=== PATIENT | male | born 1980 | race Caucasian/White ===

== ENCOUNTER 2017-10-30 16:17 | Emergency (ER) | payer OTHER ==
[~2017-10-30] VITALS: Ht 167.6 cm; Wt 99.8 kg
[~2017-10-30 16:17] MED LIST: NAPROSYN500 MG PO; ZYRTEC10 M5 PO
[2017-10-30] MEDS ORDERED: ZOFRAN ODT4 MG DISSOLVE (16:27)
[2017-10-30 17:01] LABS: BASOPHILS 0.8 % (0.0-2.0); EOSINOPHILS 3.5 % (0.0-3.0); HEMATOCRIT 45.9 % (42.0-52.0); HEMOGLOBIN 16.3 gm/dL (14.0-18.0); LYMPHOCYTES 28.5 % (24.0-44.0); MCH 31.2 pg (26.0-34.0); MCHC 35.4 g/dL (28.0-37.0); MONOCYTES 7.1 % (1.0-8.0); PLATELET COUNT 276 thou/uL (150-400); POLYS 60.1 % (36.0-66.0); RBC 5.21 mil/uL (4.50-6.00); RDW 13.2 % (10.5-14.5); WBC 6.6 thou/uL (4.0-11.0)
[2017-10-30 17:09] LABS: CREATININE 1.2 mg/dL (0.7-1.3); POTASSIUM 3.7 mmol/L (3.5-5.1)
[2017-10-30 17:14] LABS: ALBUMIN 3.7 g/dL (3.4-5.0); DIRECT BILIRUBIN 0.1 mg/dL (<0.1-0.3); TOTAL BILIRUBIN 0.4 mg/dL (<0.1-1.0); TOTAL PROTEIN 6.8 g/dL (6.4-8.2)
[2017-10-30] MEDS ORDERED: COLACE100 MG PO (17:18)
[2017-10-30 17:36] VITALS: BP 134/90
[2017-11-01] MEDS ORDERED: VENTOLIN HFA 1818 GM INH (08:14)
== END 2017-10-30 17:46 | disposition home or self-care (01) ==
LOC: ER 16:17
PROVIDERS: Emergency Medicine
DX: K62.5 Hemorrhage of anus and rectum (principal); R10.31 Right lower quadrant pain; J45.909 Unspecified asthma, uncomplicated; I10 Essential (primary) hypertension

== ENCOUNTER → 2017-11-02 | Outpatient (CLI) | payer OTHER ==
[~2017-11-02] VITALS: Ht 167.6 cm; Wt 99.8 kg
[~2017-11-02] MED LIST changes: +COLACE100 MG PO; +VENTOLIN HFA 1818 GM INH; +ZOFRAN ODT4 MG DISSOLVE
--- NOTE | ~2017-11-02 | P ---
[facility] [place] [address] PROCEDURE REPORT Name: FROILANYINA DEAN Room #: REG KARLA Carter#: [id number] Admission: 11/02/17 Attend Phys: Smith Naidu Discharge: Date of : 82 Report #: [id number] THIS REPORT FOR: //name// CC: Smith Escamilla MD DATE OF SERVICE: 11/02/2017 PROCEDURE PERFORMED: Colonoscopy with biopsies. HISTORY OF PRESENT ILLNESS: The patient is a 36-year-old male with recent episodes of bright red blood per rectum. No abdominal pain, no constipation or diarrhea associated with this. He had a CT scan of the abdomen and pelvis that was negative apparently. No family history of colon cancer. No previous history of colonoscopy. PROCEDURE: The risks and benefits of the procedure were explained to the patient, those risks including, but not limited to bleeding, perforation, and the risk of sedation. He understood these risks and gave informed consent. Sedation was given using propofol per anesthesia. Next, a digital rectal exam was initially performed, which was normal. Next, using a standard Atooman colonoscope, the scope was placed in the patient's anus and advanced under direct vision to the cecum. The overall prep was excellent. The cecum and ileocecal valve were normal in appearance. Terminal ileum was intubated and normal in appearance. Ascending, transverse, and descending colon were normal. A few small scattered diverticula were noted in the sigmoid colon. A 3-mm sessile polyp was also noted. This was removed with cold forceps. The rectal mucosa was normal. On retroflexion, no abnormalities were noted. Close examination of the anal canal showed a small nonbleeding anal fissure. The scope was then withdrawn and the procedure terminated. The patient tolerated the procedure well. IMPRESSION: 1. Sigmoid diverticulosis, mild. 2. Small sigmoid colon polyp. 3. Small anal fissure, likely source of recent bright red blood per rectum. RECOMMENDATIONS: 1. High fiber diet. 2. Await biopsy results. 3. Analpram on a p.r.n. basis. [facility] [address] [place] [address] PROCEDURE REPORT Name: YINA MCGOVERN MADAY [facility] #: [facility] [id number] Admission: 11/02/17 Attend Phys: Smith Naidu Discharge: Date of : 82 Report #: [id number] Thank you for allowing me to participate in his care. <ELECTRONICALLY SIGNED> By: Smith Purdy MD 11/04/17 [id number] Smith Purdy MD /nt
--- NOTE | ~2017-11-02 | S ---
[facility] [place] [address] SURGICAL PATH RPT PROCEDURE Name: YINA NEGRETE MADAY Room #: REG Pinky Carter#: [id number] Admission: 11/02/17 Date of : 82 Discharge: Report #: [id number] Path Case #: [id number] PATHOLOGY REPORT COLLECTION DATE: 11/02/2017 RECEIVED DATE: 11/02/2017 SUBMITTING PHYS: Dr. Smith Purdy OTHER PHYS: Dr. Nik Escamilla SPECIMEN(S) RECEIVED: A.Sigmoid polyp * * * * * * * * * * * * FINAL DIAGNOSIS: "Sigmoid polyp", biopsy: - Hyperplastic polyp. (CLW:mml; 11/04/2017) PATHOLOGIST: Cindy Wood M.D. REPORT ELECTRONICALLY SIGNED BY: Cindy Wood M.D. DATE/TIME: 11/04/2017 15:06 * * * * * * * * * * * * GROSS PATHOLOGY: Received in formalin labeled "Yina Negrete, polyp at sigmoid colon," are three segments of alvarez soft tissue measuring 0.4 x 0.4 x 0.2 cm in aggregate dimensions and ranging from 0.2 to 0.3 cm in maximum dimension. The specimen is submitted entirely in cassette A1. (DAC; 11/03/2017) CLINICAL HISTORY: Pre-op diagnosis: Rectal bleeding Post-op diagnosis: Colon polyp, anal fissure, diverticulosis INITIAL CPT CODE(S): A; 78133 Professional services performed by [facility] at [facility] [address] [place] [address] Technical services performed by [facility] at [address] [place] [id number]. [facility] [address] [place] [address] SURGICAL PATH RPT PROCEDURE Name: YINA NEGRETE Room #: REG KARLA Carter#: [id number] Admission: 11/02/17 Date of : 82 Discharge: Report #: [id number] Path Case #: [id number] [place] [id number] [address] PHONE: [phone] DIRECTOR: Nilesh Agee M.D. * * * END OF REPORT * * *
== END | disposition home or self-care (01) ==
LOC: GI 07:29
DX: K63.5 Polyp of colon (principal); K57.30 Diverticulosis of large intestine without perforation or abscess without bleeding; K60.2 Anal fissure, unspecified; J45.909 Unspecified asthma, uncomplicated; Z90.49 Acquired absence of other specified parts of digestive tract; Z98.890 Other specified postprocedural states; Z79.899 Other long term (current) drug therapy
CPT/HCPCS: 62110; 62900

== ENCOUNTER 2018-11-04 15:12 | Emergency (ER) | payer BC ==
[~2018-11-04] VITALS: Ht 167.6 cm; Wt 102.1 kg
[2018-11-04] MEDS ORDERED: IBUPROFEN 800800 M1 PO (16:17)
[2018-11-04 16:35] VITALS: BP 116/79
== END 2018-11-04 16:07 | disposition home or self-care (01) ==
LOC: ER 15:12
DX: S93.491A Sprain of other ligament of right ankle, initial encounter (principal); J45.909 Unspecified asthma, uncomplicated; Z91.048 Other nonmedicinal substance allergy status; Z90.49 Acquired absence of other specified parts of digestive tract; Z98.52 Vasectomy status; X50.1XXA Overexertion from prolonged static or awkward postures, initial encounter; Y92.89 Other specified places as the place of occurrence of the external cause; Y93.89 Activity, other specified; Y99.8 Other external cause status